=== PATIENT | male | born 1945 | race Caucasian/White ===

== ENCOUNTER 2017-05-26 22:14 | Emergency (ER) | payer MEDICARE, MEDICAID ==
[~2017-05-26] VITALS: Ht 152.4 cm; Wt 73.0 kg
[~2017-05-26 22:14] MED LIST: ACET-2178 PO; AMLO10TA4 PO; BENA40TA3 PO; CARV12.545 PO; GABA-290 PO; HYDR25TA PO; METF500T4 PO; SIMV20TA6 PO; TRAM50TA3 PO; WARF2TAB55 PO
[2017-05-27 00:03] LABS: BASOPHILS % 0.6 % (0.0-2.0); EOSINOPHILS % 1.2 % (0.0-5.0); HEMATOCRIT. 42.9 % (42.0-52.0); HEMOGLOBIN. 14.5 g/dL (14.0-18.0); LYMPHOCYTES % 7.9 % (20.0-50.0); MEAN CORPUSCULAR HEMOGLOBIN 29.7 pg (28.0-32.0); MEAN CORPUSCULAR VOLUME 88.1 fL (80.0-94.0); MONOCYTES % 9.7 % (2.0-8.0); NEUTROPHILS % 80.6 % (40.0-76.0); PLATELET 73 x1000/uL (130-400); RED BLOOD CELL COUNT 4.87 mill/uL (4.7-6.1); RED CELL DISTRIBUTION WIDTH 15.2 % (11.6-14.6)
[2017-05-27 00:05] LABS: CHLORIDE 106 mEq/L (98-107)
[2017-05-27 00:10] LABS: INR 3.2; PROTHROMBIN TIME 33.2 sec (9.4-11.6)
[2017-05-27 00:13] LABS: CARBON DIOXIDE 27 mEq/L (21-32)
[2017-05-27 02:49] VITALS: BP 151/70
== END 2017-05-27 02:49 | disposition home or self-care (01) ==
LOC: ER 22:47
DX: K06.8 Other specified disorders of gingiva and edentulous alveolar ridge (principal); D68.9 Coagulation defect, unspecified; I10 Essential (primary) hypertension; E78.00 Pure hypercholesterolemia, unspecified; Z79.01 Long term (current) use of anticoagulants
CPT/HCPCS: 36415; 80053; 85025; 85610; 99284

== ENCOUNTER 2020-08-08 19:18 | Inpatient (IN) | payer MEDICARE, MEDICAID ==
[~2020-08-08] VITALS: Ht 167.6 cm; Wt 65.3 kg
[~2020-08-08 19:18] MED LIST changes: -ACET-2178 PO; -BENA40TA3 PO; +BENA40TA9 PO; +METF-414 PO; -METF500T4 PO; +SIMV-43 PO; -SIMV20TA6 PO; +TOPUD PO; +WARF-67 PO; -WARF2TAB55 PO
[2020-08-08 20:54] LABS: BASOPHILS % 0.2 % (0.0-2.0); HEMATOCRIT. 33.3 % (42.0-52.0); HEMOGLOBIN. 11.1 g/dL (14.0-18.0); LYMPHOCYTES % 8.6 % (20.0-50.0); MEAN CORPUSCULAR HEMOGLOBIN 29.1 pg (28.0-32.0); MEAN CORPUSCULAR VOLUME 87.3 fL (80.0-94.0); MONOCYTES % 8.6 % (2.0-8.0); NEUTROPHILS % 82.6 % (40.0-76.0); PLATELET 57 x1000/uL (130-400); RED BLOOD CELL COUNT 3.81 mill/uL (4.7-6.1); RED CELL DISTRIBUTION WIDTH 14.7 % (11.6-14.6)
[2020-08-08 21:00] LABS: CHLORIDE 109 mEq/L (98-107)
[2020-08-08] MEDS ORDERED: ASPIRIN 81MG TABLET PO ONE (21:30)
[2020-08-08] MEDS ORDERED: SODIUM CHLORIDE 0.9% 1,000 ML IV ONE (21:30)
[2020-08-09] MEDS ORDERED: ENOXAPARIN 80MG/0.8ML SYR SUBCUT ONE (01:30)
[2020-08-09] MEDS ORDERED: MAGNESIUM/ALUMINUM HYDROXIDE/SIMETHICONE 30ML UDC PO PRN (05:30)
[2020-08-09] MEDS ORDERED: ONDANSETRON HCL 4MG/2ML INJ IV PRN (05:30)
[2020-08-09] MEDS ORDERED: PIPERACILLIN/TAZ 3.375G PREMIX 50 ML IV ONE (05:30)
[2020-08-09] MEDS ORDERED: FUROSEMIDE 40MG/4ML VIAL IVP ONE (05:30)
[2020-08-09] MEDS ORDERED: DOCUSATE SODIUM 100MG CAPSULE PO PRN (05:30)
[2020-08-09] MEDS ORDERED: AZITHROMYCIN 500 MG in DEXT 5% WATER 250 ML IV ONE (05:30)
[2020-08-09] MEDS ORDERED: GUAIFENESIN 200MG/10ML SUGAR FREE UDC PO PRN (05:30)
[2020-08-09] MEDS ORDERED: VANCOMYCIN 1 G PREMIX 200 ML IV ONE (05:30)
[2020-08-09] MEDS ORDERED: AZITHROMYCIN 500 MG in DEXT 5% WATER 250 ML IV SCH ×2 (05:30→06:00)
[2020-08-09] MEDS ORDERED: ENOXAPARIN 40MG/0.4ML SYR SUBCUT SCH (05:30)
[2020-08-09] MEDS ORDERED: CEFTRIAXONE 1 G PREMIX 50 ML IV SCH (06:00)
[2020-08-09] MEDS: AMLODIPINE 10MG TABLET PO SCH (09:00)
[2020-08-09] MEDS ORDERED: DEXTROSE 50% WATER 50ML SYRINGE IV PRN (09:30)
[2020-08-09] MEDS: DEXAMETHASONE 4MG/ML 1ML VIAL IV SCH (09:31)
[2020-08-09 12:21] LABS: INR 2.4
[2020-08-09] MEDS: BLOOD SUGAR DIAGNOSTIC STRIP TEST SCH ×3 (13:26→21:00)
[2020-08-09] MEDS: INSULIN LISPRO (HIGH DOSE) 100 UNITS/ML SUBCUT SCH ×2 (13:44→18:19)
[2020-08-09 15:11] LABS: BG BASE EXCESS -3.1 mmol/L (-2.0-2.0); BG CARBOXYHEMOGLOBIN 0.1 % (0.5-1.5); BG DEOXYHEMOGLOBIN 14.4 % (0.0-5.0); BG FRACTION INSPIRED OXYGEN 100; BG HCO3 ACT 21.3 mmol/L (22.0-26.0); BG METHEMOGLOBIN 0.1 % (0.0-1.5); BG OXYGEN SATURATION 85.6 % (92.0-98.5); BG OXYHEMOGLOBIN 85.4 % (94.0-97.0); BG PO2 49.6 mmHg (75.0-100.0); BG SAMPLE SITE RIGHT RADIAL; BG TOTAL HEMOGLOBIN 12.5 g/dL (12.0-18.0); BG VENT MODE MASK - NRB
[2020-08-09 15:57] LABS: CLARITY URINE CLOUDY (CLEAR); COLOR URINE YELLOW (YELLOW); KETONES URINE NEGATIVE (NEGATIVE); LEUKOCYTE ESTERASE URINE NEGATIVE (NEGATIVE); NITRITE URINE NEGATIVE (NEGATIVE); OCCULT BLOOD URINE 1+ (NEGATIVE); PROTEIN URINE 2+ (NEGATIVE); SPECIFIC GRAVITY URINE 1.025 (1.005-1.030)
[2020-08-09 16:10] VITALS: BP 103/29
[2020-08-09 16:20] LABS: METHADONE URINE SCREEN NEGATIVE (NEGATIVE); OPIATES URINE SCREEN NEGATIVE (NEGATIVE); PHENCYCLIDINE URINE SCREEN NEGATIVE (NEGATIVE)
[2020-08-09 16:21] LABS: *AMPHETAMINES SCREEN URINE NEGATIVE (NEGATIVE); *BARBITURATES SCREEN URINE NEGATIVE (NEGATIVE); *BENZODIAZEPINES SCREEN URINE NEGATIVE (NEGATIVE); *COCAINE SCREEN URINE NEGATIVE (NEGATIVE); CANNABINOID URINE SCREEN NEGATIVE (NEGATIVE)
[2020-08-09 18:00] VITALS: BP 103/29
[2020-08-09 20:00] VITALS: BP 120/54
[2020-08-10] VITALS: BP 129/44
[2020-08-10] MEDS: INSULIN LISPRO (HIGH DOSE) 100 UNITS/ML SUBCUT SCH ×5 (00:41→21:18)
[2020-08-10] MEDS: ACETAMINOPHEN 325MG TABLET PO PRN (00:46)
[2020-08-10 04:00] VITALS: BP 112/50
[2020-08-10] MEDS: BLOOD SUGAR DIAGNOSTIC STRIP TEST SCH ×4 (07:48→20:58)
[2020-08-10 08:00] VITALS: BP 145/51
[2020-08-10] MEDS ORDERED: AZITHROMYCIN 500 MG in DEXT 5% WATER 250 ML IV SCH (09:00)
[2020-08-10] MEDS ORDERED: CEFTRIAXONE 1 G PREMIX 50 ML IV SCH (09:00)
[2020-08-10] MEDS: AMLODIPINE 10MG TABLET PO SCH (09:55)
[2020-08-10] MEDS: DEXAMETHASONE 4MG/ML 1ML VIAL IV SCH (09:56)
[2020-08-10 10:41] LABS: HEMATOCRIT. 39.3 % (42.0-52.0); MEAN CORPUSCULAR HEMOGLOBIN 28.9 pg (28.0-32.0); MEAN CORPUSCULAR VOLUME 87.2 fL (80.0-94.0); MEAN PLATELET VOLUME 10.7 fl (7.4-10.4); PLATELET 86 x1000/uL (130-400); RED BLOOD CELL COUNT 4.51 mill/uL (4.7-6.1); RED CELL DISTRIBUTION WIDTH 14.3 % (11.6-14.6)
[2020-08-10 10:43] LABS: CHLORIDE 111 mEq/L (98-107)
[2020-08-10 12:00] LABS: INR 3.1; PROTHROMBIN TIME 30.5 sec (9.6-11.0)
[2020-08-10 12:42] LABS: PLATELET ESTIMATE DECREAS
[2020-08-10] MEDS ORDERED: CEFTRIAXONE 1,000 MG in DEXTROSE 5% WATER 50 ML IV SCH (14:00)
[2020-08-10 14:43] LABS: T4 FREE 1.06 ng/dL (0.76-1.46)
[2020-08-10 14:53] LABS: CREATINE KINASE MB FRACTION 8.8 ng/mL (0.5-3.6)
[2020-08-10 16:00] VITALS: BP 117/30
[2020-08-10] MEDS: FUROSEMIDE 20MG/2ML VIAL IVP SCH (16:06)
[2020-08-10] MEDS: AZITHROMYCIN 500 MG in DEXT 5% WATER 250 ML IV SCH (16:06)
[2020-08-10 20:00] VITALS: BP 125/55
[2020-08-10 23:37] LABS: CREATINE KINASE MB FRACTION 7.7 ng/mL (0.5-3.6)
[2020-08-11] VITALS: BP 130/59
[2020-08-11 04:00] VITALS: BP 150/63
[2020-08-11] MEDS: BLOOD SUGAR DIAGNOSTIC STRIP TEST SCH ×4 (05:47→20:29)
[2020-08-11 08:00] VITALS: BP 132/63
[2020-08-11] MEDS: FUROSEMIDE 20MG/2ML VIAL IVP SCH (08:41)
[2020-08-11] MEDS: AZITHROMYCIN 500 MG in DEXT 5% WATER 250 ML IV SCH (08:42)
[2020-08-11] MEDS: AMLODIPINE 10MG TABLET PO SCH (08:47)
[2020-08-11] MEDS: DEXAMETHASONE 4MG/ML 1ML VIAL IV SCH (08:47)
[2020-08-11] MEDS: INSULIN LISPRO (HIGH DOSE) 100 UNITS/ML SUBCUT SCH ×4 (08:48→20:29)
[2020-08-11 08:56] LABS: PROTHROMBIN TIME 40.4 sec (9.6-11.0)
[2020-08-11 09:49] LABS: CREATINE KINASE MB FRACTION 5.1 ng/mL (0.5-3.6)
[2020-08-11 12:00] VITALS: BP 112/66
[2020-08-11 12:51] LABS: INR 4.1
[2020-08-11 16:00] VITALS: BP 145/76
[2020-08-11] MEDS ORDERED: WARFARIN SODIUM 2MG TABLET PO SCH (18:00)
[2020-08-11] MEDS: ACETAMINOPHEN 325MG TABLET PO PRN (19:57)
[2020-08-11 20:00] VITALS: BP 101/74
[2020-08-12] VITALS: BP 105/70
[2020-08-12 04:00] VITALS: BP 110/65
[2020-08-12] MEDS: BLOOD SUGAR DIAGNOSTIC STRIP TEST SCH ×4 (07:40→20:12)
[2020-08-12 08:00] VITALS: BP 151/96
[2020-08-12] MEDS: INSULIN LISPRO (HIGH DOSE) 100 UNITS/ML SUBCUT SCH ×4 (08:10→20:12)
[2020-08-12 08:51] LABS: PROTHROMBIN TIME 45.5 sec (9.6-11.0)
[2020-08-12] MEDS: FUROSEMIDE 20MG/2ML VIAL IVP SCH (10:37)
[2020-08-12] MEDS: DEXAMETHASONE 4MG/ML 1ML VIAL IV SCH (10:37)
[2020-08-12] MEDS: AMLODIPINE 10MG TABLET PO SCH (10:38)
[2020-08-12 12:00] VITALS: BP 135/85
[2020-08-12 12:27] LABS: INR 4.7
[2020-08-12 16:00] VITALS: BP 136/72
[2020-08-12 18:17] LABS: BG BASE EXCESS 3.6 mmol/L (-2.0-2.0); BG CARBOXYHEMOGLOBIN 0.3 % (0.5-1.5); BG DEOXYHEMOGLOBIN 16.4 % (0.0-5.0); BG FRACTION INSPIRED OXYGEN 100; BG HCO3 ACT 27.3 mmol/L (22.0-26.0); BG METHEMOGLOBIN 0.1 % (0.0-1.5); BG OXYGEN SATURATION 83.5 % (92.0-98.5); BG OXYHEMOGLOBIN 83.2 % (94.0-97.0); BG PCO2 38.4 mmHg (35.0-45.0); BG PO2 46.8 mmHg (75.0-100.0); BG SAMPLE SITE RIGHT BRACHIAL; BG TOTAL HEMOGLOBIN 13.6 g/dL (12.0-18.0); BG VENT MODE MASK - BIPAP
[2020-08-12 20:00] VITALS: BP 133/71
[2020-08-12] MEDS: ACETAMINOPHEN 325MG TABLET PO PRN (20:12)
[2020-08-13] VITALS: BP 124/68
[2020-08-13 04:00] VITALS: BP 143/80
[2020-08-13 07:02] LABS: PROTHROMBIN TIME 53.9 sec (9.6-11.0)
[2020-08-13 07:38] LABS: INR 5.6
[2020-08-13] MEDS: BLOOD SUGAR DIAGNOSTIC STRIP TEST SCH ×4 (07:44→21:35)
[2020-08-13 08:00] VITALS: BP 122/63
[2020-08-13] MEDS: DEXAMETHASONE 4MG/ML 1ML VIAL IV SCH ×2 (09:00→09:41)
[2020-08-13] MEDS: FUROSEMIDE 20MG/2ML VIAL IVP SCH ×2 (09:00→09:41)
[2020-08-13] MEDS: AMLODIPINE 10MG TABLET PO SCH (09:42)
[2020-08-13] MEDS: ACETAMINOPHEN 325MG TABLET PO PRN ×2 (09:45→17:20)
[2020-08-13] MEDS: INSULIN LISPRO (HIGH DOSE) 100 UNITS/ML SUBCUT SCH ×4 (09:47→21:35)
[2020-08-13 12:00] VITALS: BP 110/64
[2020-08-13 16:00] VITALS: BP 141/73
[2020-08-13 20:00] VITALS: BP 108/47
[2020-08-14] VITALS: BP 150/54
[2020-08-14 04:00] VITALS: BP 164/61
[2020-08-14] MEDS: BLOOD SUGAR DIAGNOSTIC STRIP TEST SCH ×4 (05:49→20:23)
[2020-08-14] MEDS: ACETAMINOPHEN 325MG TABLET PO PRN ×2 (05:53→17:29)
[2020-08-14 07:37] LABS: PROTHROMBIN TIME 54.8 sec (9.6-11.0)
[2020-08-14 07:43] LABS: INR 5.7
[2020-08-14 08:00] VITALS: BP_SYST 127; BP_SYST 128; BP_DIAS 64; BP_DIAS 70
[2020-08-14] MEDS: INSULIN LISPRO (HIGH DOSE) 100 UNITS/ML SUBCUT SCH ×4 (08:47→21:21)
[2020-08-14] MEDS: DEXAMETHASONE 4MG/ML 1ML VIAL IV SCH (08:51)
[2020-08-14] MEDS: AMLODIPINE 10MG TABLET PO SCH (08:51)
[2020-08-14] MEDS ORDERED: FUROSEMIDE 40MG/4ML VIAL IVP SCH (09:00)
[2020-08-14 12:00] VITALS: BP 143/55
[2020-08-14 16:00] VITALS: BP 132/76
[2020-08-14 20:00] VITALS: BP 135/41
[2020-08-15] VITALS: BP 104/68
[2020-08-15 04:00] VITALS: BP 158/66
[2020-08-15 05:09] LABS: DRVVT LA 61.3 sec (0.0-47.0); DRVVT MIX LA 39.5 sec (0.0-40.4); HEXAGONAL PHASE PHOSPHOLIPID 0 sec (0-11); LUPUS ANTICOAG INTERPRETATION Comment: (.); PTT-LA 64.2 sec (0.0-51.9); PTT-LA MIX 51.3 sec (0.0-48.9)
[2020-08-15] MEDS: BLOOD SUGAR DIAGNOSTIC STRIP TEST SCH ×4 (06:14→21:00)
[2020-08-15 08:00] VITALS: BP 128/42
[2020-08-15] MEDS: DEXAMETHASONE 4MG/ML 1ML VIAL IV SCH (09:19)
[2020-08-15] MEDS: AMLODIPINE 10MG TABLET PO SCH (09:19)
[2020-08-15] MEDS: FUROSEMIDE 20MG/2ML VIAL IVP SCH (09:22)
[2020-08-15] MEDS: INSULIN LISPRO (HIGH DOSE) 100 UNITS/ML SUBCUT SCH ×4 (09:23→21:00)
[2020-08-15 12:00] VITALS: BP 168/65
[2020-08-15] MEDS: CLONIDINE 0.1MG TABLET PO PRN (12:34)
[2020-08-15 14:09] LABS: PROTHROMBIN TIME 57.4 sec (9.6-11.0)
[2020-08-15 16:00] VITALS: BP 137/87
[2020-08-15] MEDS: ACETAMINOPHEN 325MG TABLET PO PRN (17:33)
[2020-08-15 20:00] VITALS: BP 118/45
[2020-08-16] VITALS: BP 136/70
[2020-08-16] MEDS: ACETAMINOPHEN 325MG TABLET PO PRN ×4 (03:52→16:25)
[2020-08-16 04:00] VITALS: BP_SYST 84
[2020-08-16] MEDS: BLOOD SUGAR DIAGNOSTIC STRIP TEST SCH ×4 (07:18→21:00)
[2020-08-16 08:00] VITALS: BP 132/46
[2020-08-16] MEDS: DEXAMETHASONE 4MG/ML 1ML VIAL IV SCH (08:43)
[2020-08-16] MEDS: AMLODIPINE 10MG TABLET PO SCH (08:43)
[2020-08-16] MEDS: FUROSEMIDE 20MG/2ML VIAL IVP SCH (08:43)
[2020-08-16] MEDS: INSULIN LISPRO (HIGH DOSE) 100 UNITS/ML SUBCUT SCH ×4 (08:44→23:11)
[2020-08-16 12:00] VITALS: BP 102/61
[2020-08-16 16:00] VITALS: BP 171/62
[2020-08-16 20:00] VITALS: BP 149/54
[2020-08-17 00:44] VITALS: BP 140/51
[2020-08-17 04:00] VITALS: BP 90/73
[2020-08-17] MEDS: BLOOD SUGAR DIAGNOSTIC STRIP TEST SCH ×4 (06:07→21:00)
[2020-08-17 08:00] VITALS: BP 134/89
[2020-08-17] MEDS: INSULIN LISPRO (HIGH DOSE) 100 UNITS/ML SUBCUT SCH ×4 (08:57→23:20)
[2020-08-17] MEDS: ACETAMINOPHEN 325MG TABLET PO PRN ×2 (09:00→17:12)
[2020-08-17] MEDS: FUROSEMIDE 20MG/2ML VIAL IVP SCH (09:02)
[2020-08-17] MEDS: DEXAMETHASONE 4MG/ML 1ML VIAL IV SCH (09:02)
[2020-08-17] MEDS: AMLODIPINE 10MG TABLET PO SCH (09:02)
[2020-08-17 12:00] VITALS: BP 128/68
[2020-08-17 17:04] LABS: HEMATOCRIT. 42.9 % (42.0-52.0); HEMOGLOBIN. 13.7 g/dL (14.0-18.0); MEAN CORPUSCULAR VOLUME 87.3 fL (80.0-94.0); MEAN PLATELET VOLUME 12.7 fl (7.4-10.4); PLATELET 129 x1000/uL (130-400); RED BLOOD CELL COUNT 4.92 mill/uL (4.7-6.1); RED CELL DISTRIBUTION WIDTH 14.7 % (11.6-14.6)
[2020-08-17 17:28] LABS: INR 7.4; PROTHROMBIN TIME 70.2 sec (9.6-11.0)
[2020-08-17 18:25] LABS: PLATELET ESTIMATE SLIGHTLY DECREASED
[2020-08-17 20:00] VITALS: BP_SYST 125; BP_SYST 96; BP_DIAS 45
[2020-08-18] VITALS: BP 158/54
[2020-08-18 04:00] VITALS: BP 141/49
[2020-08-18 07:30] LABS: INR 7.5
[2020-08-18 08:00] VITALS: BP 133/37
[2020-08-18] MEDS: FUROSEMIDE 20MG/2ML VIAL IVP SCH (08:59)
[2020-08-18] MEDS: DEXAMETHASONE 4MG/ML 1ML VIAL IV SCH (09:00)
[2020-08-18] MEDS: AMLODIPINE 10MG TABLET PO SCH (09:00)
[2020-08-18] MEDS: INSULIN LISPRO (HIGH DOSE) 100 UNITS/ML SUBCUT SCH ×4 (09:01→20:09)
[2020-08-18 12:00] VITALS: BP 143/80
[2020-08-18] MEDS: BLOOD SUGAR DIAGNOSTIC STRIP TEST SCH ×3 (12:40→20:09)
[2020-08-18 16:00] VITALS: BP 117/86
[2020-08-18 20:00] VITALS: BP 155/78
[2020-08-19] VITALS: BP 150/90
[2020-08-19 04:00] VITALS: BP 144/77
[2020-08-19] MEDS: BLOOD SUGAR DIAGNOSTIC STRIP TEST SCH ×4 (07:07→21:00)
[2020-08-19 07:10] LABS: PROTHROMBIN TIME 76.1 sec (9.6-11.0)
[2020-08-19 07:14] LABS: INR 8.1
[2020-08-19 08:00] VITALS: BP 145/81
[2020-08-19] MEDS: DEXAMETHASONE 4MG/ML 1ML VIAL IV SCH (09:00)
[2020-08-19] MEDS: FUROSEMIDE 20MG/2ML VIAL IVP SCH (10:06)
[2020-08-19] MEDS: AMLODIPINE 10MG TABLET PO SCH (10:06)
[2020-08-19] MEDS: INSULIN LISPRO (HIGH DOSE) 100 UNITS/ML SUBCUT SCH ×3 (10:10→18:30)
[2020-08-19 12:00] VITALS: BP 146/47
[2020-08-19] MEDS ORDERED: PHYTONADIONE 10 MG/10 ML ORALSYR PO SCH (13:00)
[2020-08-19 16:00] VITALS: BP 162/92
[2020-08-19] MEDS: CLONIDINE 0.1MG TABLET PO PRN (18:13)
[2020-08-19 20:00] VITALS: BP 128/69
[2020-08-20] VITALS: BP 141/74
[2020-08-20] MEDS: INSULIN LISPRO (HIGH DOSE) 100 UNITS/ML SUBCUT SCH ×4 (01:40→19:08)
[2020-08-20 04:00] VITALS: BP 157/83
[2020-08-20] MEDS: BLOOD SUGAR DIAGNOSTIC STRIP TEST SCH ×3 (07:40→18:20)
[2020-08-20 08:00] VITALS: BP 145/80
[2020-08-20 08:03] LABS: INR 2.4; PROTHROMBIN TIME 23.7 sec (9.6-11.0)
[2020-08-20] MEDS: AMLODIPINE 10MG TABLET PO SCH (11:14)
[2020-08-20 12:00] VITALS: BP 158/100
[2020-08-20 16:00] VITALS: BP 172/85
[2020-08-20 16:09] LABS: CHLORIDE 119 mEq/L (98-107)
[2020-08-20 16:19] LABS: HEMATOCRIT. 50.4 % (42.0-52.0); HEMOGLOBIN. 15.6 g/dL (14.0-18.0); MEAN CORPUSCULAR HEMOGLOBIN 28.1 pg (28.0-32.0); MEAN CORPUSCULAR VOLUME 90.7 fL (80.0-94.0); MEAN PLATELET VOLUME 12.7 fl (7.4-10.4); PLATELET 126 x1000/uL (130-400); RED BLOOD CELL COUNT 5.56 mill/uL (4.7-6.1); RED CELL DISTRIBUTION WIDTH 15.8 % (11.6-14.6)
[2020-08-20] MEDS: FUROSEMIDE 20MG/2ML VIAL IVP SCH (19:07)
[2020-08-20] MEDS: CLONIDINE 0.1MG TABLET PO PRN (19:07)
[2020-08-20] MEDS ORDERED: DEXTROSE 5% WATER 1,000 ML IV SCH (19:45)
[2020-08-20] MEDS ORDERED: HYDRALAZINE 20MG/ML VIAL IV PRN (19:45)
[2020-08-20 21:14] LABS: NUCLEATED RED BLOOD CELLS 1 /100 WBC
[2020-08-20 21:15] LABS: PLATELET ESTIMATE SLIGHTLY DECREASED
== END 2020-08-21 01:57 | disposition expired | DRG 871 ==
LOC: ER 19:18 → 7WST 08-09 01:18 → ENRESERV 08-09 14:59
PROVIDERS: ADMIT Hospitalist; ATTEND Hospitalist
PROC: 5A09557 Assistance with Respiratory Ventilation, Greater than 96 Consecutive Hours, Continuous Positive Airway Pressure (ICD-10-PCS; principal; 2020-08-09)
PROC: 06HY33Z Insertion of Infusion Device into Lower Vein, Percutaneous Approach (ICD-10-PCS; 2020-08-20)
PROC: B54BZZA Ultrasonography of Right Lower Extremity Veins, Guidance (ICD-10-PCS; 2020-08-20)
PROC: 0BH17EZ Insertion of Endotracheal Airway into Trachea, Via Natural or Artificial Opening (ICD-10-PCS; 2020-08-20)
PROC: 5A12012 Performance of Cardiac Output, Single, Manual (ICD-10-PCS; 2020-08-20)
DX: A41.89 Other specified sepsis (principal); U07.1 COVID-19; J96.01 Acute respiratory failure with hypoxia; J12.82 Pneumonia due to coronavirus disease 2019; I42.9 Cardiomyopathy, unspecified; M62.82 Rhabdomyolysis; D68.62 Lupus anticoagulant syndrome; R65.20 Severe sepsis without septic shock; E11.40 Type 2 diabetes mellitus with diabetic neuropathy, unspecified; D69.6 Thrombocytopenia, unspecified; I10 Essential (primary) hypertension; I25.10 Atherosclerotic heart disease of native coronary artery without angina pectoris; I95.9 Hypotension, unspecified; Z79.01 Long term (current) use of anticoagulants; Z95.2 Presence of prosthetic heart valve; Z79.899 Other long term (current) drug therapy; I46.9 Cardiac arrest, cause unspecified; Z79.1 Long term (current) use of non-steroidal anti-inflammatories (NSAID)
CPT/HCPCS: 36415; 36600; 71045; 80053; 80061; 80305; 81003; 82375; 82550; 82553; 82728; 82805; 82962; 83036; 83615; 83880; 84145; 84439; 84443; 84484; 85025; 85027; 85049; 85379; 85613; 85732; 86038; 86140; 87635; 93005; 93306; 94660; 96365; 99291; J0456; J0696; J1100; J1650; J1815; J1940; J2543; J3370; J3430; J7030; J7040; J7060